=== PATIENT | male | born 1960 | race Caucasian/White ===

== ENCOUNTER 2024-07-31 16:12 | Emergency (ER) | payer MEDICARE ==
[~2024-07-31] VITALS: Ht 182.9 cm; Wt 111.1 kg
[~2024-07-31 16:12] MED LIST: Norco 5-325 Ta1 EACH PO
[2024-07-31 16:22] VITALS: BP 161/80
== END 2024-07-31 19:45 | disposition left against medical advice (07) ==
LOC: ER 16:12
DX: Z53.21 Procedure and treatment not carried out due to patient leaving prior to being seen by health care provider (principal)
CPT/HCPCS: 71046